=== PATIENT | male | born 1960 ===

== ENCOUNTER 2024-12-08 09:58 | Emergency (ER) | payer MEDICARE, SELFPAY ==
--- NOTE | ~2024-12-08 | CT_ITS ---
EXAMINATION: CT CHEST ANGIOGRAPHY WITH IV CONTRAST INDICATION: elevated dimer, tachy r/o PE v PNA COMPARISON: Previous chest x-ray from earlier the same day TECHNIQUE: Helical CT scan of the chest was performed following administration of intravenous contrast (65 mL Omnipaque 350). The contrast bolus was timed to optimally opacify the pulmonary arteries. Thin sections were obtained through the pulmonary arteries. Coronal and sagittal reformatted images were generated. 3D/MIP reconstructed images are also obtained and reviewed. This CT exam was performed with one or more of the following dose reduction techniques: automated exposure control, adjustment of the mA and/or kV according to patient size, use of iterative reconstruction technique. DLP: 204 mGy-cm CHEST: THYROID: The thyroid gland is unremarkable. PULMONARY ARTERIES: There is good opacification of the pulmonary arteries. Exam is slightly limited due to artifact from respiratory motion. No evidence of large or central pulmonary embolism. There is question of small subsegmental right lower lobe pulmonary artery emboli for example axial image 76-77 and 88-98 series 7. Pulmonary arteries are normal in caliber, main pulmonary artery measuring 2.7 cm. No evidence of right heart strain. No reflux of contrast into the liver. LUNGS: Limited evaluation of the lungs due to artifact from respiratory motion. Elevated right hemidiaphragm. 10 mm partially calcified right upper lobe nodule axial image 44 series 7. This has areas of low attenuation are questionable for fat. 3 mm calcified right lower lobe nodule axial image 66 series 7. 2 mm calcified left lower lobe nodule axial image 56 series 7. Irregular shaped nodular density measuring up to 7 mm or scarring in the left lung apex axial image 58 series 13. Subsegmental atelectasis in the left upper lobe and bilateral lower lobes. No evidence of pneumonia. Central airways are clear. MEDIASTINUM: There are small mediastinal lymph nodes. No enlarged lymph nodes. VANESSA: There are small bilateral calcified and noncalcified hilar lymph nodes. No enlarged lymph nodes. CARDIOVASCULATURE: Enlarged heart. There is no pericardial effusion. The thoracic aorta is normal in caliber. Mild aortic calcification. Normal-appearing esophagus. DEGREE OF CORONARY CALCIFICATION: mild PLEURA: There is no pleural effusion. No pneumothorax. MAIN AIRWAYS: The mainstem bronchi and proximal branches are patent. AXILLA: There is no axillary lymphadenopathy. UPPER ABDOMEN: 1.7 x 2.7 cm low-attenuation lesion in the dome of the liver segment 8 axial image 38 series 5. This has Hounsfield units higher than that of a simple cyst. BONES AND SOFT TISSUES: 7 mm sclerotic density in the T7 vertebral body. Mild degenerative changes of the spine. CT/CT angio chest PE protocol IMPRESSION: Limited exam due to respiratory motion artifact. No evidence of large or central pulmonary embolism. Question small subsegmental right lower lobe pulmonary emboli. 10 mm partially calcified right upper lobe nodule. This has low attenuation areas just above fat and may represent a hamartoma. Other smaller 2 to 3 mm calcified pulmonary nodules. Differential would include old granulomatous disease, carcinoid and other lung neoplasm. Comparison with old outside exams if available recommended. Otherwise PET CT, tissue sampling or short-term chest CT follow-up would be considered. 7 mm nodule versus scarring the left lung apex. No evidence of pneumonia. Indeterminant 1.7 x 2.7 cm liver lesion not compatible with a simple cyst. Recommend further characterization with ultrasound, CT or MRI. Electronically signed by: Suzan Capone MD 12/08/2024 03:00 PM EDT
--- NOTE | ~2024-12-08 | XR_ITS ---
EXAMINATION: XR CHEST CLINICAL INFORMATION: Pneumonia. Cold like symptoms COMPARISON: None available. TECHNIQUE: PA and lateral views. FINDINGS: 5 mm nodular opacity right hemithorax. No pleural effusion or pneumothorax. No hyperinflation. Cardiomediastinal silhouette size is normal with a round apex. Tortuosity of the thoracic aorta. Mild multilevel spondylosis. XR/XR chest 2V IMPRESSION: 5 mm nodular opacity, right lung. Recommend dedicated CT chest. Electronically signed by: Jeffrey Diego MD 12/08/2024 10:53 AM EDT
[2024-12-08 10:04] VITALS: BP 144/80; PULSE 102; O2SAT 97
[2024-12-08 10:14] VITALS: BP 139/85; PULSE 123; RESP 16; TEMP 36.9; O2SAT 95; BMI 22.5
--- NOTE | 2024-12-08 10:17 | ECG_ITS ---
Test Reason : TACHYCARDIA Blood Pressure : */* mmHG Vent. Rate : 116 BPM Atrial Rate : 116 BPM P-R Int : 158 ms QRS Dur : 76 ms QT Int : 310 ms P-R-T Axes : 55 32 51 degrees QTcB Int : 430 ms Sinus tachycardia cannot exclude old Anterior infarct , age undetermined Could be related to body habitus Abnormal ECG No previous ECGs available Referred By: Stevenson Melgar Electronically Signed By: KENDY SHEPHERD
--- NOTE | 2024-12-08 10:21 | ED.GENADULT ---
HPI - General Adult General Chief complaint: Upper Respiratory Symptoms Stated complaint: COLD PER EMS Time Seen by Provider: 12/08/24 10:49 Source: patient, EMS and healthcare interpreter (finnish - jonathan) Mode of arrival: EMS Limitations: language barrier (finnish) History of Present Illness ED Provider: VANI SHERIDAN PA-C HPI narrative: 64 year old male presents to the ED today for evaluation of chills and myalgias x2-3 days. Reports taking Tylenol this morning with temporary improvement in symptoms. Denies documented fevers, N/V/D, abdominal pain, urinary sx, cough, rashes. No known sick contacts. No history of VTE. Denies recent travel or long car rides. Not on anticoagulation. No known tick or insect bites. Endorses remote history of tobacco use. Denies etoh consumption. Patient reports moving to the [facility] from [facility] in the . He is unsure if he received all of his vaccinations. He is unsure if he has ever tested positive for TB in the past. Related Data Previous Rx's ?Medication ?Instructions ?Recorded apixaban 5 mg (74 tabs) tablets in 5 mg PO BID #74 ea 12/08/24 a dose pack (Eliquis DVT-PE Treat 30D Start) Allergies Allergy/AdvReac Type Severity Reaction Status Date / Time No Known Allergies Allergy Verified 12/08/24 10:15 Review of Systems Review of Systems: Yes all other systems are reviewed and are negative PMFSH Past Medical History Attestation statement: The following information was validated with the patient. Source: old records reviewed and nursing notes reviewed Social History Social History Alcohol intake: current Alcohol type: beer Smoked in Last 30 Days: No Use of substances other than those prescribed or required for medical reasons: No Advance Directives: No Advance Directives Information Provided: No Physical Exam ED Vital Signs: Vital Signs - 24 hr 12/08/24 10:14 12/08/24 11:52 12/08/24 12:38 Temperature 98.5 F Pulse Rate 123 H 100 Respiratory Rate 16 17 Blood Pressure 139/85 140/86 H Pulse Oximetry 95 94 94 Oxygen Delivery Method Room Air Room Air Room Air 12/08/24 14:24 12/08/24 16:56 Temperature 98.2 F Pulse Rate 94 94 Respiratory Rate 16 16 Blood Pressure 136/82 136/82 Pulse Oximetry 95 95 Oxygen Delivery Method Room Air Room Air BMI result Body Mass Index 22.5 tachycardic, afebrile, not hypoxic General: well appearing, in no acute distress. Skin: Warm, dry, intact. No rashes or lesions. Head: Normocephalic, atraumatic. EENT: Hearing is intact b/l. Conjunctiva clear. Sclera is anicteric. PERRLA. EOM intact. Moist mucous membranes. Posterior oropharynx without erythema or edema, no peritonsillar masses, no tonsillar exudates, uvula midline, controlling secretions, speaking in complete sentences Cardiac: Chest wall symmetric. RRR Lungs: Normal respiratory effort without accessory muscle use. CTA bilaterally. No rales, rhonchi, or wheezes.?No crackles. Abdomen: Soft, non-tender, non-distended. No rebound tenderness or guarding. Positive BS x4. Back: No midline spinous or paraspinal tenderness. No step off deformity. Ext: +no overlying skin changes or joint swelling. FROM intact throughout. no calf tenderness b/l. no pitting edema. Neuro: AOx3. Normal speech.Ambulating with steady gait. Course Course Course Narrative: RME: 64 yold male presents to the ED for cold like symptoms decsrbes as chills and bodyaches. patient denies any coughing. Patient tachycardic without geovanna chest pain, but will do EKG and labs and chest xray. Reevaluation(s) Reevaluation #1: 1150 -- CBC without leukocytosis however there is neutrophil predominance. No anemia, H & H stable. Chemistry without acute electrolyte abnormality requiring intervention. No VASQUEZ. Random glucose 223, no anion gap. Total bili elevated to 1.3, no priors to compare to, of unknown significance as patient denies any abdominal pain. NT pro BNP ordered by triage, elevated to 2266.7 however clinically there is no suspicion for heart failure. trop wnl at 3.4. Given timing of symptom onset and presentation to ED, no need to repeat for delta. negative covid/flu. ddimer elevated to 372 - age adjusted cut off 330. will obtain CTA chest to r/o PE v PNA > medicated w/ toradol and IVF CTA chest showing: CT angio chest PE protocol IMPRESSION: Limited exam due to respiratory motion artifact. No evidence of large or central pulmonary embolism. Question small subsegmental right lower lobe pulmonary emboli. 10 mm partially calcified right upper lobe nodule. This has low attenuation areas just above fat and may represent a hamartoma. Other smaller 2 to 3 mm calcified pulmonary nodules. Differential would include old granulomatous disease, carcinoid and other lung neoplasm. Comparison with old outside exams if available recommended. Otherwise PET CT, tissue sampling or short-term chest CT follow-up would be considered. 7 mm nodule versus scarring the left lung apex. No evidence of pneumonia. Indeterminant 1.7 x 2.7 cm liver lesion not compatible with a simple cyst. Recommend further characterization with ultrasound, CT or MRI. I discussed findings with my attending, dr. bryson. We performed bedside echo - see procedure note. There is no evidence of right heart strain. Patient's coags and platelets are wnl. Plan to start patient on eliquis. Given multiple lung nodules and liver lesion, there is concern for underlying cancer which may be the cause of his PE. The differential also includes old granulomatosis disease -unclear if patient has been infected with TB in the past as he appears to not recall if he has ever been tested or received treatment for it. there is no visible scar to either deltoid region to indicate prior vaccine. I did add on TB testing however this is still pending. I used healthcare interpreter services to discuss work up results with patient in depth. I stressed the importance of follow up as cancer CANNOT be rule in/out and have provided him with referrals. He states he will be contacting his PCP tomorrow morning for follow up. At this time, the recommendation is discharge home w/ outpatient follow up. patient is agreeable and anxious for discharge home. he has family on the way to transport him. Medications Administered Discontinued Medications Generic Name Dose Route Start Last Admin Trade Name Freq PRN Reason Stop Dose Admin Sodium Chloride 1,000 mls @ 999 mls/hr 12/08/24 11:15 12/08/24 13:15 Ns IV 12/08/24 12:15 Infused .Q1H1M DA Infusion Iohexol 100 ml 12/08/24 13:41 12/08/24 13:42 Iohexol 350 Mg/Ml 100 Ml Infus..Btl IV 12/08/24 13:42 65 ml ONCE ONE Administration Ketorolac Tromethamine 15 mg 12/08/24 11:05 12/08/24 11:55 Ketorolac Tromethamine 15 Mg/Ml Vial IVPUSH 12/08/24 11:06 15 mg ONCE ONE Administration Procedures Procedure Narrative Procedure Narrative: EMERGENCY ULTRASOUND INTERPRETATION-Limited Echocardiography [This study was ordered, performed, and interpreted by myself. The study reveals: Impression: Mildly reduced LV FUNCTION, NO RV DYSFUNCTION, NO PERICARDIAL EFFUSION] [Emergent Cardiac for Indication: Views Used: PLAX, PSSA, A4, SX, IVC Pericardial Effusion/Tamponade Findings: NONE RV Dilation (> LV diam in 4ch apical): NONE Global LV Fxn: Mildly reduce IVC Dilation and Resp Variation: NORMAL Performed by: MD Katherine Images were stored CPT:[id number]] Medical Decision Making Medical Decision Making MDM Narrative: 64 year old male presents to the ED today for evaluation of chills and myalgias x2-3 days. patient is tachycardic to 123, afebrile, no hypoxia. Differential diagnosis includes anemia, electrolyte abnormality, dehydration, urinary tract infection, viral syndrome, bronchitis, pneumonia, PE Labs, viral swabs, ekg, cxr obtained from triage. Will add on ddimer - PERC 2. Medicated w/ Toradol and IVF. Differential Diagnosis Differential Diagnoses: The differential diagnosis associated with the presentation includes as above. Admission/Observation not indicated Lab Data [facility] Lab Attestation statement: I reviewed the patient's lab results. as above. 12/08/24 10:37 12/08/24 10:37 Labs: Lab Results 12/08/24 Range/Units 10:37 WBC 5.8 (4.8-10.8) X10*3/uL RBC 4.53 L (4.60-5.80) X10*6/uL Hgb 14.5 (14.0-18.0) g/dl Hct 42.9 (42.0-52.0) % MCV 94.7 (80.0-98.0) fL MCH 32.0 (27.0-33.0) pg MCHC 33.8 (31.0-36.0) g/dl RDW 11.5 (11.0-16.0) % Plt Count 191 (160-400) X10*3/uL MPV 10.7 (9.4-12.4) fL Immature Gran % (Auto) 0.2 (0.0-0.4) % Neut % (Auto) 89.4 H (45-73) % Lymph % (Auto) 6.6 L (20-40) % Imperial % (Auto) 2.6 (2-11) % Eos % (Auto) 0.7 (0-4) % Baso % (Auto) 0.5 (0-2) % Lymph # (Auto) 0.4 L (1.2-4.9) X10*3/uL Imperial # (Auto) 0.2 (0.1-1.2) X10*3/uL Eos # (Auto) 0.0 (0.0-0.4) X10*3/uL Baso # (Auto) 0.0 (0.0-0.2) X10*3/uL Abs Immat Gran (auto) 0.01 (0.00-0.03) X10*3/uL Absolute Neuts (auto) 5.2 (2.0-8.3) x10*3/uL Absolute Nucleated RBC 0.000 (0.0-0.012) X10*3/uL Nucleated RBC % (auto) 0.0 (0.0-0.2) /100WBC PT 11.0 (10.9-12.4) SEC INR 1.0 (0.9-1.1) APTT 24.7 L (26.7-34.1) SEC D-Dimer High Sensitivty 372 NG/ML Sodium 138 (135-145) mmol/L Potassium 3.8 (3.3-5.1) mmol/L Chloride 105 (96-108) mmol/L Carbon Dioxide 23 (22-29) mmol/L Anion Gap 14 (12-20) BUN 13 (9-16) mg/dL Creatinine 0.86 (0.5-1.4) mg/dL Estim Creat Clear Calc 73.1 Estimated GFR > 60 Random Glucose 225 H (60-115) mg/dL Calcium 9.5 (8.4-10.2) mg/dL Total Bilirubin 1.3 H (0.0-1.0) mg/dL AST 36 (5-37) U/L ALT 37 (0-40) U/L Alkaline Phosphatase 72 (39-117) U/L Troponin I High Sens 3.4 (<3.5-35.0) ng/L NT-Pro-B Natriuret Pep 2266.7 H (<300) pg/mL Total Protein 7.9 (6.5-8.0) g/dL Albumin 4.3 (3.5-5.0) g/dL COVID-19 (GUERA) Negative (Negative) COVID-19 Clin Com See Note Influenza Type A (CECILIO) Negative (Negative) Influenza Type B (CECILIO) Negative (Negative) Influenza A & B Note See Note Independent Interpretation I performed an independent interpretation of an: EKG, Plain X-Ray and CT Scan Interpretation: cxr showing opacity to right lung ekg showing sinus tachycardia, rate of 116 beats per minute, QT 310, QTC 430, no acute ischemic changes or ST elevations cta chest Radiology Impression Discussion of test interpretation with radiology: I have reviewed the radiologist's reading. Radiologist Impression: Procedure(s): XR chest 2V Accession Number(s): [id number] cc: Stevenson Melgar; [facility]~ Reason for Exam: Pneumonia. Cold like symptoms EXAMINATION: XR CHEST CLINICAL INFORMATION: Pneumonia. Cold like symptoms COMPARISON: None available. TECHNIQUE: PA and lateral views. FINDINGS: 5 mm nodular opacity right hemithorax. No pleural effusion or pneumothorax. No hyperinflation. Cardiomediastinal silhouette size is normal with a round apex. Tortuosity of the thoracic aorta. Mild multilevel spondylosis. XR/XR chest 2V IMPRESSION: 5 mm nodular opacity, right lung. Recommend dedicated CT chest. Electronically signed by: Jeffrey Diego MD 12/08/2024 10:53 AM EDT Independent Historian Clinical information obtained from an independent historian. History obtained from or confirmed by: EMS Prescription Management I considered prescription management with: Pain Medication and Antibiotic Chronic Conditions Patient?s care impacted by: Diabetes Social Determinants Patient?s care significantly limited by Social Determinants of Health including: Other Social Determinant of Health Critical Care Time Critical Care Time Critical Care Time: No Discharge Plan Discharge Clinical Impression: Viral syndrome, Pulmonary emboli Patient Disposition: Home, Self-Care Instructions: Pulmonary Embolism (ED), Viral Syndrome (ED), Blood Thinners (ED) Additional Instructions: You were evaluated in the ED today for muscle pain and chills. Your blood work today is reassuring. Your chest xray showed a nodule to your right upper lung, thus a CT scan of your chest was ordered. The CT scan shows a small clot (pulmonary embolus) to your right lower lung. You need to be placed on a blood thinner to prevent further clots. I am starting you on eliquis. I have sent a starter pack to your pharmacy to take as prescribed over the next month. YOU NEED TO FOLLOW UP WITH YOUR PCP for refills as you will need to be on this medication for at least 3 months. Avoid NSAID use, alcohol consumption while on Eliquis. If you fall and strike your head, you need to come to the ED for evaluation to rule out head bleed. You may take Tylenol at home for pain/discomfort. The CT scan of your chest also shows calcified nodules to your right lung as well as a lesion to the upper portion of your liver. These findings are concerning for a potential cancer. You NEED to follow up out patient for further testing/ scans to determine if you may have cancer. I have provided you with a referral to a repeat photocomposing machine operator (lung doctor). Please call them to establish care, they will not call you. Please return with any new or worsening symptoms. In the case of an emergency call 911. Prescriptions: New Eliquis DVT-PE Treat 30D Start 5 mg (74 tabs) tablets,dose pack 5 mg PO BID Qty: 74 0RF Referrals: [facility] [Other] [facility] [place] [place] Pulmon[facility] Services [Provider Group, Pulmonology] Referral Note: CT angio chest PE protocol IMPRESSION: Limited exam due to respiratory motion artifact. No evidence of large or central pulmonary embolism. Question small subsegmental right lower lobe pulmonary emboli. 10 mm partially calcified right upper lobe nodule. This has low attenuation areas just above fat and may represent a hamartoma. Other smaller 2 to 3 mm calcified pulmonary nodules. Differential would include old granulomatous disease, carcinoid and other lung neoplasm. Comparison with old outside exams if available recommended. Otherwise PET CT, tissue sampling or short-term chest CT follow-up would be considered. 7 mm nodule versus scarring the left lung apex. No evidence of pneumonia. Indeterminant 1.7 x 2.7 cm liver lesion not compatible with a simple cyst. Recommend further characterization with ultrasound, CT or MRI. Interventions: ED Discharge Assessment Last Done: 12/08/24 16:56 Discharge Date/Time: 12/08/24 17:22 Print Language: Venezuelan
[2024-12-08 10:45] LABS: MANUAL DIFF FLAG NO
[2024-12-08 10:49] LABS: Hematocrit 42.9 % (42.0-52.0); Hemoglobin 14.5 g/dl (14.0-18.0); Imm Gran Abs Auto 0.01 X10*3/uL (0.00-0.03); Imm Gran Pct Auto 0.2 % (0.0-0.4); Lymphocytes Absolute Auto 0.4 X10*3/uL (1.2-4.9); Mean Corpuscular HGB Conc 33.8 g/dl (31.0-36.0); Mean Corpuscular Hemoglobin 32.0 pg (27.0-33.0); Mean Corpuscular Volume 94.7 fL (80.0-98.0); NRBC Abs Auto 0.000 X10*3/uL (0.0-0.012); NRBC Pct Auto 0.0 /100WBC (0.0-0.2); Platelet Count 191 X10*3/uL (160-400); Red Blood Count 4.53 X10*6/uL (4.60-5.80); White Blood Count 5.8 X10*3/uL (4.8-10.8)
[2024-12-08 10:53] LABS: INTERNATIONAL NORM RATIO 1.0 (0.9-1.1); Prothrombin Time 11.0 SEC (10.9-12.4)
[2024-12-08 10:56] LABS: Partial Thromboplastin Time 24.7 SEC (26.7-34.1)
[2024-12-08 11:05] LABS: Alanine Aminotransferase 37 U/L (0-40); Albumin Level 4.3 g/dL (3.5-5.0); Alkaline Phosphatase 72 U/L (39-117); Anion Gap 14 (12-20); Aspartate Amino Transferase 36 U/L (5-37); Blood Urea Nitrogen 13 mg/dL (9-16); Calcium 9.5 mg/dL (8.4-10.2); Carbon Dioxide 23 mmol/L (22-29); Chloride 105 mmol/L (96-108); Creatinine Clr Calc Pharmacy 73.1; Estimated Glomerular Filt Rate > 60; Potassium 3.8 mmol/L (3.3-5.1); Sodium 138 mmol/L (135-145); Total Protein 7.9 g/dL (6.5-8.0)
[2024-12-08 11:14] LABS: NT Pro B Type Natriuretic Pept 2266.7 pg/mL (<300); Troponin-I High Sensitivity 3.4 ng/L (<3.5-35.0)
[2024-12-08 11:33] LABS: COVID-19 Test Negative (Negative); IDNOW Serial# 55D5AD1C; IDNOW Serial# 58CA691E; Influenza B2 Negative (Negative)
[2024-12-08 11:48] LABS: D Dimer High Sensitivity 372 NG/ML
[2024-12-08 11:52] VITALS: O2SAT 94
[2024-12-08 12:38] VITALS: BP 140/86; PULSE 100; RESP 17; O2SAT 94
[2024-12-08] MEDS: iohexoL 350 MG/ML 100 ML INFUS..BTL IV (13:42)
[2024-12-08 14:24] VITALS: BP 136/82; PULSE 94; RESP 16; O2SAT 95
--- NOTE | 2024-12-08 16:30 | MHC.EDTECH ---
Labs work drawn/sent
[2024-12-08 16:56] VITALS: BP 136/82; PULSE 94; RESP 16; TEMP 36.8; O2SAT 95
[2024-12-11 20:19] LABS: Quantiferon TB Gold Plus 1 NEGATIVE (NEGATIVE); TB Test (QFT) Mitogen -Nil 1.19 IU/mL; TB Test (QFT) Nil 3.03 IU/mL; TB Test (QFT) Plus TB1 -Nil <0.00 IU/mL; TB Test (QFT) Plus TB2 -Nil <0.00 IU/mL
== END 2024-12-08 17:22 | disposition home or self-care (01) ==
PROVIDERS: Physician Assistant; Physician Assistant Medical; Emergency Provider Emergency Medicine
DX: B34.9 Viral infection, unspecified (principal); I26.99 Other pulmonary embolism without acute cor pulmonale; Z79.899 Other long term (current) drug therapy; M79.10 Myalgia, unspecified site
CPT/HCPCS: 36415; 71046; 71275; 80053; 83880; 84484; 85025; 85379; 85610; 85730; 86480; 87502; 87635; 93005; 93308; 96361; 96374; 99285; J1885; Q9967

== ENCOUNTER → 2024-12-08 10:17 | Outpatient (BNV) | payer MEDICARE, SELFPAY | PROVIDERS: Emergency Provider Emergency Medicine; Visit Provider Internal Medicine | DX: R00.0 Tachycardia, unspecified (principal) | CPT/HCPCS: 93010 ==

== ENCOUNTER → 2024-12-08 10:17 | Outpatient (BNV) | payer MEDICARE, SELFPAY | PROVIDERS: Emergency Provider Emergency Medicine; Visit Provider Radiology Diagnostic Radiology | DX: R00.0 Tachycardia, unspecified (principal); R79.1 Abnormal coagulation profile; J18.9 Pneumonia, unspecified organism | CPT/HCPCS: 71046 ==

== ENCOUNTER 2024-12-17 09:51 | Emergency (ER) | payer MEDICARE, SELFPAY ==
[2024-12-17] VITALS (16 sets, daily range): BP systolic 111–147; BP diastolic 46–80; PULSE 82–150; RESP 16–33; TEMP 36.4–39.9; O2SAT 90–100; BMI 22.4
--- NOTE | ~2024-12-17 | CT_ITS ---
CLINICAL HISTORY: SOB hx of PE ? septic emboli pulmonary infarct CT angiography of the chest with IV contrast. 3D/MIP post processing reconstructions were performed. COMPARISON: CT angiogram chest dated 12/08/24 at 13:24 EDT FINDINGS: There are no intraluminal filling defects to suggest pulmonary embolism. No evidence of right heart strain. No supraclavicular or axillary lymphadenopathy. Ascending aorta and main pulmonary artery are normal in caliber. Coronary artery calcifications present within the LAD and circumflex. No pericardial effusion. Normal esophagus. No mediastinal lymphadenopathy. No pleural effusion. Smooth interlobular septal thickening along the posterior lower lobes bilaterally. Subpleural consolidation within the right upper lobe laterally, new from prior imaging Trachea and central airways are clear. No significant bronchial wall thickening. No bronchiectasis. Interval development of multiple bilateral pulmonary nodules. For example left upper lobe pulmonary nodule measuring 1.3 x 1.3 cm (series 21, image 51), new from prior imaging. Left upper lobe 6 mm pulmonary nodule (series 21, image 70), new from prior imaging. Left lower lobe 7 mm pulmonary nodule (series 21, image 98), new from prior imaging. Right upper lobe medial 1.0 x 0.9 cm pulmonary nodule (series 21, image 61), new from prior imaging. Partially calcified right upper lobe pulmonary nodule measuring 1.0 cm (series 21, image 43), stable. Ill-defined hepatic lesion with small amount of internal gas measuring 6.9 x 4.8 x 0.1 cm (series 21, image 92), previously measured 2.9 x 2.2 cm. Sclerotic lesion within the T7 vertebral body consistent with a bone island. IMPRESSION: 1. No evidence of pulmonary embolism. 2. Interval development of subpleural consolidation along the lateral right upper lung and multiple bilateral pulmonary nodules measuring up to 1.3 cm in the left upper lobe. Findings most likely represent a multifocal infectious or inflammatory process with metastatic disease considered less likely given, with the exception of one partially calcified nodule, the nodules are new since imaging dated 12/08/2024. No evidence of cavitation. 3. Interval increase in size of ill-defined lesion within the right lobe of the liver measuring up to 6.9 cm with now small amount of internal gas. Findings raise suspicion for hepatic abscess. 4. Interstitial pulmonary edema. 5. Coronary artery atherosclerosis. This document has been electronically signed by: Marko Granger MD on 12/17/2024 15:00:58
--- NOTE | ~2024-12-17 | XR_ITS ---
CLINICAL HISTORY: sob 1 view chest Comparison: CR/SR - XR CHEST 2 VIEWS - 12/08/24 10:54 EDT Findings: Cardiac and mediastinal contours are normal. Mild interstitial prominence with scattered peribronchial thickening. No focal consolidation. No effusion. No pneumothorax. No acute osseous finding. Impression: Mild interstitial prominence with scattered peribronchial thickening. No focal consolidation. This document has been electronically signed by: Josse Holt MD on 12/17/2024 11:10:15
--- NOTE | ~2024-12-17 | CT_ITS ---
CLINICAL HISTORY: AMS fever abd pain Exam: Contrast-enhanced CT abdomen and pelvis with multiplanar reformats. Comparison: None. Findings: CT abdomen: Lungs reveal left base nodules measuring up to 8 mm (measured on 28; 14). There is right worse than left lower lobe dependent atelectasis. Liver reveals a multiloculated somewhat heterogeneous right lobe collection measuring up to 7.3 x 5.6 cm AP and transverse dimension (28; 91, predominantly fluid attenuation at 10 Hounsfield units, with a small focus of gas density anteriorly) by 5.8 cm craniocaudad dimension (30; 38), most likely hepatic abscess. No other focal lesions or ductal dilatation. Gallbladder appears unremarkable. Spleen appears unremarkable. Pancreas and adrenal glands appear unremarkable. Kidneys reveal a very slightly heterogeneous nephrogram on the right, raising the possibility of mild pyelonephritis. Kidneys otherwise unremarkable. No free intraperitoneal fluid or retroperitoneal masses or adenopathy. Abdominal aorta is normal caliber with mild calcific athero sclerosis. Bowel loops reveal no abnormal wall thickening or distention. The appendix appears unremarkable. No CT evidence of diverticulitis. CT pelvis: Prostatomegaly is present, with prostate gland measuring 5.6 cm transverse dimension. Urinary bladder is free of gross filling defects. No pelvic masses, fluid or adenopathy. Osseous structures reveal no destructive osseous lesions. Impression: 1. Multiloculated fluid attenuation hepatic lesion containing small focus of gas, most likely hepatic abscess, measuring up to 7.3 cm maximal dimension. 2. Slightly heterogeneous right nephrogram raises the possibility of mild pyelonephritis, consider correlation with urinalysis. Pulmonary nodules measuring up to 8 mm. 3. Pulmonary nodules measuring up to 8 mm. Prostatomegaly as described above. This document has been electronically signed by: Scott Richard MD on 12/17/2024 14:18:35
--- NOTE | ~2024-12-17 | CT_ITS ---
CLINICAL HISTORY: AMS CT head without contrast Comparison: None Findings: No intracranial mass, midline shift, hydrocephalus, or acute hemorrhage. No CT evidence of acute ischemia. Visualized paranasal sinuses and mastoid air cells normal. Orbits unremarkable. No skull fracture Impression: 1. No acute intracranial abnormalities. This document has been electronically signed by: Scott Richard MD on 12/17/2024 14:13:34
--- NOTE | 2024-12-17 10:16 | ECG_ITS ---
Test Reason : SOB Blood Pressure : */* mmHG Vent. Rate : 124 BPM Atrial Rate : 124 BPM P-R Int : 166 ms QRS Dur : 74 ms QT Int : 304 ms P-R-T Axes : 24 24 59 degrees QTcB Int : 436 ms Sinus tachycardia Cannot rule out Inferior infarct , age undetermined Cannot rule out Anterior infarct (cited on or before 08-Dec-2024) Abnormal ECG When compared with ECG of 08-Dec-2024 10:30, T wave inversion no longer evident in Anterior leads Referred By: Breanna Brambila Electronically Signed By: Fady Bernardo
--- NOTE | 2024-12-17 10:24 | ED_ITS ---
HPI - General Adult General Chief complaint: Dyspnea Stated complaint: SOB WEAKNESS Time Seen by Provider: 12/17/24 10:15 Source: patient and EMS Mode of arrival: EMS Limitations: altered mental status History of Present Illness ED Provider: FLAKITO Brambila HPI narrative: 64-year-old male hx of remote substance abuse, recently dx w/ PE ( 12/08) presents via ambulance from home for a feeling unwell. Patient reports worsening shortness of breath over the past few weeks worsening. He has a very poor historian and tells me I do not feel good . He denies associated chest pain or sick contacts. He tells me he was recently in the hospital but has a hard time telling me why he was here. He does endorse history of drug use he tells me he used to use crack cocaine but denies currently using. When I asked him about IV drug use he mentioned years ago however I am not sure that patient understood my question. He does tell me he drinks alcohol. He seems slightly confused upon my history taking and is a very poor historian. EMS noted that patient was 91% on room air and was tachycardic to 125 with a respiratory rate of 32. Exam: General: At the time my examination and the patient is feeling significantly better, he was awake, alert in no distress Head: Normocephalic, atraumatic EENT: PERRL, sclera and conjunctiva are normal, mouth with no erythema or exudates Neck: Supple, no adenopathy Lung: breath sounds symmetric, no wheezing, no rales and no rhonchi Chest: symmetric movement, nontender Heart: regular rate and rhythm, normal S1, S2 no murmurs or rubs Abdomen: soft, non-tender, nondistended, normal bowel sounds Back: no vertebral tenderness, no CVAT Extremities: no deformities, moves all extremities symmetrically, no edema Neuro: Awake, alert, oriented, normal speech, cranial nerves 2-12 intact, moves all extremities symmetrically Psych: Pleasant, cooperative Medical decision making: My interpretation in his laboratory evaluation is as follows: WBC normal 10,700. Normocytic anemia with an H&H of 13.1 and 38.7. PT INR elevated 14.5 and 1.2. ABG revealed a respiratory alkalosis with a pH of 7.43, low pCO2 of 25 low O2 sat of 82 with a low bicarb of 17. Glucose was elevated 365. Serum bicarb low 13 with an elevated anion gap of 26. BNP elevated 2683. Troponin was normal. Beta hydroxybutyrate elevated 1.76. Urinalysis was positive for protein, glucose, blood, nitrates and leukocyte esterase. Microscopic revealed 0-2 RBCs, 21-50 WBCs 2+ bacteria-this could represent a urinary tract infection. Urine toxicology was negative. Viral respiratory panel was negative. Chest x-ray revealed no local consolidations but peribronchial thickening. CT of the head revealed no acute intracranial abnormalities. CT of the abdomen pelvis revealed multi lobular fluid attenuation hepatic lesions containing small foci of gas most likely hepatic abscesses measuring up to 7.3 cm max dimension. Slightly heterogeneous right nephrogram concerning for possible mild pyelonephritis and pulmonary nodules measuring up to 8 mm. Related Data Previous Rx's ?Medication ?Instructions ?Recorded apixaban 5 mg (74 tabs) tablets in 5 mg PO BID #74 ea 12/08/24 a dose pack ([employer] DVT-PE Treat 30D Start) Allergies Allergy/AdvReac Type Severity Reaction Status Date / Time No Known Allergies Allergy Verified 12/17/24 10:09 Review of Systems 2 Review of Systems: Yes all other systems are reviewed and are negative PMFSH Past Medical History Attestation statement: The following information was validated with the patient. Source: old records reviewed and nursing notes reviewed Social History Social History Alcohol intake: current Alcohol type: beer Smoked in Last 30 Days: No Use of substances other than those prescribed or required for medical reasons: Yes Substance Use Type: Crack/Cocaine Advance Directives: No Advance Directives Information Provided: No Do you have a plan to hurt others: No Plan Physical Exam ED Exam Exam: Appearance: Alert.? Oriented X2 person, place not time or situation.? Appears to be in acute cardiopulmonary distress.? Patient is sick appearing cachectic. Head: Normocephalic, atraumatic, no step-offs or deformities Eyes: Pupils equal, round and reactive to light.? Neck: Normal inspection.? Neck supple.? CVS: Normal heart rate and rhythm.? Pulses normal.? Respiratory: + respiratory distress.? Breath sounds diminished bilaterally.? Abdomen: Soft and nontender.? Skin: Skin warm and dry.? Normal skin color.? Normal skin turgor.? Extremities: No lower extremity edema.? No calf ttp. Global weakness Neuro: Oriented X person and place.? No motor deficit.? No sensory deficit. Vital Signs: Vital Signs - 24 hr 12/17/24 10:07 12/17/24 11:01 12/17/24 11:17 Temperature 103.8 F H 103.2 F H Pulse Rate 126 H 112 H 112 H Respiratory Rate 32 H 21 H 21 H Blood Pressure 129/75 115/46 L Pulse Oximetry 90 L 95 Oxygen Delivery Method Room Air Nasal Cannula Oxygen Flow Rate 2 12/17/24 11:19 12/17/24 11:29 12/17/24 11:33 Temperature 103.2 F H 100.9 F H Pulse Rate 116 H 114 H Respiratory Rate 29 H 33 H Blood Pressure 111/54 L 129/72 Pulse Oximetry 97 97 Oxygen Delivery Method Nasal Cannula Nasal Cannula Oxygen Flow Rate 2 2 12/17/24 11:38 12/17/24 12:23 12/17/24 12:23 Temperature 99.6 F 99.5 F Pulse Rate 112 H 104 H 104 H Respiratory Rate 30 H 18 20 Blood Pressure 131/70 119/66 127/67 Pulse Oximetry 98 100 100 Oxygen Delivery Method Nasal Cannula Nasal Cannula Nasal Cannula Oxygen Flow Rate 4 2 2 12/17/24 12:26 12/17/24 12:28 12/17/24 15:26 Temperature 99.0 F 99.5 F 98.9 F Pulse Rate 104 H 101 H 89 Respiratory Rate 19 20 Blood Pressure 127/67 119/66 124/77 Pulse Oximetry 100 100 100 Oxygen Delivery Method Nasal Cannula Nasal Cannula Nasal Cannula Oxygen Flow Rate 2 2 2 12/17/24 15:30 12/17/24 16:32 Temperature 98.9 F 99 F Pulse Rate 89 82 Respiratory Rate 20 22 H Blood Pressure 124/77 111/69 Pulse Oximetry 100 100 Oxygen Delivery Method Nasal Cannula Nasal Cannula Oxygen Flow Rate 2 2 BMI result Body Mass Index 22.4 vss Course Reevaluation(s) Reevaluation #1: I spoke to Landon in the pharmacy and it appears as though patient did not fill his Eliquis prescription. Claim history not available. He will reach out to [facility] Time: 10:25 Reevaluation #2: Pharmacy did reach out to me, they reach out to [facility] patient did not fill this prescription it was very expensive 900 dollars therefore they requested insurance information patient never called back in the prescription was never picked up therefore patient has not been med compliant with Eliquis since diagnosed with PE raising suspicion for possible septic emboli Given this information patient will be started on heparin drip at this time due to high suspicion for possible pulmonary infarct/septic emboli Time: 10:33 Reevaluation #3: Patient's CBC with no leukocytosis. Differential still pending. Chemistry with sodium of 132, elevated anion gap likely in the setting of acute sepsis. Lactic acid 8.5. He is being treated with fluids, antibiotics he is meeting severe sepsis criteria. Patient's pro BNP 2683 he does not appear to be in acute fluid overload on exam no lower extremity edema no crackles noted. Troponin is negative there are some ST elevations noted in the anterior leads, I discuss this with cardiology who tells me this is likely secondary to tachycardia as there are Q-waves present. Recommends repeat EKG. Per Cardiology patient likely septic. Recommends anticoagulating with heparin at this time which is already being done. I will obtain an ABG Time: 13:13 Additional Reevaluation(s): Sign out to Dr. Contreras as my shift has come to an end Time: 14:04 Date: 12/17/24 Provider: Randy Contreras MD attending physician note 64-year-old male hx of remote substance abuse, recently dx w/ PE ( 12/08) presents via ambulance from home for worsening shortness of breath. Patient was seen in the emergency department on 12/08/2024 for chills and myalgias for 2-3 days. At the 1st DB visit, CT pulmonary embolism PE protocol revealed No evidence of large or central pulmonary embolism. Question small subsegmental right lower lobe pulmonary emboli ...and Other smaller 2 to 3 mm calcified pulmonary nodules. Differential would include old granulomatous disease, carcinoid and other lung neoplasm . The patient was started on Eliquis and discharged home however he was unable to afford this medication and was not taking any anticoagulants. Patient returned complaining of shortness of breath x2 weeks getting progressively worse, rectal temperature was a 103.8 degrees F, heart rate was 125, respiratory rate was 32 and O2 saturation was 91% on room air. He denied chest pain or cough. Exam: General: Awake, alert in no distress Head: Normocephalic, atraumatic EENT: PERRL, sclera and conjunctiva are normal, mouth with no erythema or exudates Neck: Supple, no adenopathy Lung: breath sounds symmetric, no wheezing, no rales and no rhonchi Chest: symmetric movement, nontender Heart: regular rate and rhythm, normal S1, S2 no murmurs or rubs Abdomen: soft, non-tender, nondistended, normal bowel sounds Back: no vertebral tenderness, no CVAT Extremities: no deformities, moves all extremities symmetrically, no edema Neuro: Awake, alert, oriented, normal speech, cranial nerves 2-12 intact, moves all extremities symmetrically Psych: Pleasant, cooperative Medical decision making My interpretation of the laboratory evaluation is as follows: CBC revealed mild normocytic anemia with an H&H of 13.1 and 38.7. Coags reveal an elevated INR of 1.2. Blood gas revealed a pH of 7.43, pCO2 25, PO2 of 82 and bicarb of 17. Serum bicarb low 13. Anion gap elevated 26. BUN elevated 17 with a normal creatinine of 1.28. Glucose elevated 365. Lactic acid elevated 8.5. Corrected to 1.4 after fluid bolus. AST, ALT and alk-phos were elevated 94, 71, and 219. Pro BNP was elevated 2683.5. Beta hydroxybutyrate elevated 1.76. Urinalysis was positive for protein, glucose, blood, nitrates, leukocyte esterase. Microscopic revealed 0-2 RBCs, 21-50 WBCs, 0 2 squamous cells and 2+ bacteria- concerning for possible urinary tract infection. CT of the head revealed no acute findings, chest x-ray revealed no acute consolidations. CT scan of the abdomen pelvis with IV contrast was concerning for Multiloculated fluid attenuation hepatic lesion containing small focus of gas, most likely hepatic abscess, measuring up to 7.3 cm maximal and Kidneys reveal a very slightly heterogeneous nephrogram on the right, raising the possibility of mild pyelonephritis The patient was treated earlier with the Zosyn 3.375 g IV for possible pneumonia however given this hepatic lesion, I ordered clindamycin. 15:46 CT scan of the chest did not reveal any pulmonary abscess, therefore the heparin drip was stopped. I did discuss the patient's presentation with the interventional radiologist, Dr. Jef Zambrano at [facility]. He was able to review the images and states that he would attempt to drain this abscess. He recommended that the patient be admitted to the [facility] hospitalist service and kept NPO after midnight and he would attempted drain this abscess tomorrow. I did discuss patient's presentation with the covering hospitalist who was well however [facility] is currently at capacity and can not guarantee a bed at this time. I ordered a 2nd dose of Zosyn 4.5 g IV that has the 1st dose was given at 10:16 hours. 17:12 hours I did discuss the patient's presentation with the [facility] transfer line and the patient was accepted as an ED to ED transfer, accepting attending ED physician is Dr. Avila. Patient is currently stable, awake and alert and in his not appear to be in distress. Vital signs: BP 118/69, heart rate 82, respiratory rate 22, temperature 99 degrees F, O2 saturation 100% on 2 L via nasal cannula. Patient has no medications running at this time and will be transferred by BLS ambulance. Patient will be kept NPO. . Medications Administered Generic Name Dose Route Start Last Admin Trade Name Freq PRN Reason Stop Dose Admin Heparin Sodium/Sodium Chloride 25,000 unit in 250 mls @ 0 mls/hr 12/17/24 10:45 12/17/24 15:15 Heparin Sodium,Porcine/1/2ns IVCONT Infused .Q0M DA Titration Protocol Per Protocol Discontinued Medications Generic Name Dose Route Start Last Admin Trade Name Freq PRN Reason Stop Dose Admin Heparin Sodium (Porcine) 4,900 unit 12/17/24 10:38 12/17/24 12:16 Heparin Sodium,Porcine 5,000 Unit/Ml Vial 80 unit/kg (4900 unit) 12/17/24 10:39 4,900 unit IVPUSH Administration ONCE ONE Sodium Chloride 1,830 mls @ 1,830 mls/hr 12/17/24 10:16 12/17/24 12:20 Ns 30 ml/kg infuse over 1 hr (1830 ml) 12/17/24 11:15 Infused IV Infusion .Q1H STA Acetaminophen 1,000 mg in 100 mls @ 400 mls/hr 12/17/24 10:16 12/17/24 10:57 Ofirmev IV 12/17/24 10:30 Infused ONCE ONE Infusion Piperacillin Sod/Tazobactam 50 mls @ 100 mls/hr 12/17/24 10:16 12/17/24 10:57 Sod 3.375 gm/ Sodium Chloride IV 12/17/24 10:45 Infused ONCE ONE Infusion Vancomycin HCl 1,500 mg/ 500 mls @ 333.333 mls/hr 12/17/24 10:30 12/17/24 12:28 Sodium Chloride IV 12/17/24 11:59 Infused ONCE ONE Infusion Clindamycin Phosphate 900 mg in 50 mls @ 50 mls/hr 12/17/24 14:40 12/17/24 16:32 Cleocin IV 12/17/24 15:39 Infused ONCE ONE Infusion Piperacillin Sod/Tazobactam 100 mls @ 200 mls/hr 12/17/24 15:58 12/17/24 16:32 Sod 4.5 gm/ Sodium Chloride IV 12/17/24 16:27 200 mls/hr ONCE ONE Administration Iohexol 100 ml 12/17/24 12:57 12/17/24 12:57 Iohexol 350 Mg/Ml 100 Ml Infus..Btl IV 12/17/24 12:58 85 ml ONCE ONE Administration Levalbuterol HCl 1.25 mg 12/17/24 11:01 12/17/24 11:06 Levalbuterol Hcl 1.25 Mg/3 Ml Vial.Neb INHALE 12/17/24 11:02 1.25 mg ONCE ONE Administration Medical Decision Making Medical Decision Making [facility] Narrative: 1027 64-year-old male poor historian presents with worsening shortness of breath. Upon chart review it appears as though patient was seen here on 12/08/2024 he was diagnosed with pulmonary embolism and discharged home with karrie Hathaway. Upon further questioning patient tells me that he is taking this medication . When I asked him with the name of the medication as he does not know and when I asked him how many times a day he also does not know. Again patient a very poor historian. On exam patient noted to be tachycardic, tachypneic, febrile and unwell appearing. Patient is leaning over, with labored breathing. He appears diaphoretic in his skin feels warm. Regular rhythm fast rate. Breath sounds diminished bilaterally. Neurological assessment patient alert and oriented to person, place not time or situation. Abdomen soft nontender nondistended History and physical exam concerning for sepsis possible encephalopathy with possible septic embolism. I do not suspect meningitis, encephalitis as there is no meningeal signs on exam. Will rule out pneumonia, viral illness, urinary infection. Will also rule out metabolic derangements, anemia. No midline tenderness to back low suspicion for acute diskitis/epidural abscess. Low suspicion for intracranial hemorrhage. 1023 sepsis alert was called in a sepsis focused exam was done at the bedside upon arrival. Differential Diagnosis Differential Diagnoses: The differential diagnosis associated with the presentation includes (History and physical exam concerning for sepsis possible encephalopathy with possible septic embolism. I do not suspect meningitis, encephalitis as there is no meningeal signs on exam. Will rule out pneumonia, viral illness, urinary infection. Will also rule out metabolic derangements, anemia. N) Admission/Observation Consideration of admission/observation: Escalation of care including admission/observation considered Lab Data MDM Lab Attestation statement: I reviewed the patient's lab results. 12/17/24 10:33 12/17/24 10:30 Labs: Lab Results 12/17/24 12/17/24 12/17/24 Range/Units 10:29 10:30 10:33 WBC 10.7 10.7 (4.8-10.8) X10*3/uL RBC 4.19 L 4.16 L (4.60-5.80) X10*6/uL Hgb 13.1 L 13.1 L (14.0-18.0) g/dl Hct 38.9 L 38.7 L (42.0-52.0) % MCV 92.8 93.0 (80.0-98.0) fL MCH 31.3 31.5 (27.0-33.0) pg MCHC 33.7 33.9 (31.0-36.0) g/dl RDW 12.3 12.3 (11.0-16.0) % Plt Count 357 D 365 (160-400) X10*3/uL MPV 11.0 11.3 (9.4-12.4) fL Immature Gran % (Auto) 1.6 H (0.0-0.4) % Neut % (Auto) 90.2 H (45-73) % Lymph % (Auto) 3.9 L (20-40) % [place] % (Auto) 3.5 (2-11) % Eos % (Auto) 0.1 (0-4) % Baso % (Auto) 0.7 (0-2) % Lymph # (Auto) 0.4 L (1.2-4.9) X10*3/uL [place] # (Auto) 0.4 (0.1-1.2) X10*3/uL Eos # (Auto) 0.0 (0.0-0.4) X10*3/uL Baso # (Auto) 0.1 (0.0-0.2) X10*3/uL Abs Immat Gran (auto) 0.17 H (0.00-0.03) X10*3/uL Absolute Neuts (auto) 9.6 H (2.0-8.3) x10*3/uL Absolute Nucleated RBC 0.000 0.000 (0.0-0.012) X10*3/uL Nucleated RBC % (auto) 0.0 0.0 (0.0-0.2) /100WBC Smear Tech's Comments VERIFIED PT 14.5 H Cancelled (11.2-13.5) SEC INR 1.2 H Cancelled (0.9-1.1) APTT 30.6 D (26.7-34.1) SEC aPTT Heparin Protocol Cancelled O2 Saturation % ABG pH at Pt Temp (7.35-7.45) ABG pCO2 at Pt Temp (32-45) mmHg ABG pO2 at Pt Temp (83-108) mmHg ABG HCO3 (22-26) mmol/L ABG Base Excess (Actual) mmol/L VBG pH (7.32-7.43) VBG pCO2 mmHg VBG pO2 mmHg VBG HCO3 (22-26) mmol/L VBG O2 Saturation % VBG Base Excess mmol/L Sodium 132 L (135-145) mmol/L Potassium 4.5 (3.3-5.1) mmol/L Chloride 98 (96-108) mmol/L Carbon Dioxide 13 L (22-29) mmol/L Anion Gap 26 H (12-20) BUN 17 H (9-16) mg/dL Creatinine 1.28 (0.5-1.4) mg/dL Estim Creat Clear Calc 48.9 Estimated GFR 56 Random Glucose 365 H* (60-115) mg/dL Lactic Acid 8.5 H* (0.5-2.0) mmol/L Lactic Acid F/U @ 2Hr (0.5-2.0) mmol/L Calcium 9.2 (8.4-10.2) mg/dL Magnesium 2.5 (1.6-2.6) mg/dL Total Bilirubin 0.8 (0.0-1.0) mg/dL AST 94 H (5-37) U/L ALT 71 H (0-40) U/L Alkaline Phosphatase 219 H (39-117) U/L Troponin I High Sens < 2.7 (<3.5-35.0) ng/L NT-Pro-B Natriuret Pep 2683.5 H (<300) pg/mL Total Protein 7.9 (6.5-8.0) g/dL Albumin 3.6 (3.5-5.0) g/dL Lipase 71 (8-78) U/L Beta-Hydroxybutyrate 1.76 H (0.02-0.27) mmol/L Urine Color Urine Appearance Urine pH (5.0-9.0) Ur Specific [place] (1.005-1.025) Urine Protein (Neg-Trace) mg/dL Urine Glucose (UA) (Negative) mg/dL Urine Ketones (Negative) mg/dL Urine Blood (Negative) Urine Nitrite (Negative) Ur Leukocyte Esterase (Negative) Urine RBC (0-2) /HPF Urine WBC (0-5) /HPF Urine WBC Clumps Ur Squamous Epith Cells (0-2) /HPF Urine Bacteria (None Seen) Hyaline Casts (0-2) /LPF Urine Opiates Screen (Not Detect) Ur Buprenorphine Scrn (Not Detect) ng/mL Ur Oxycodone Screen (Not Detect) ng/mL Urine Methadone Screen (Not Detect) ng/mL Urine Fentanyl Screen (Not Detect) Ur Barbiturates Screen (Not Detect) Ur Phencyclidine Scrn (Not Detect) Ur Amphetamines Screen (Not Detect) U Benzodiazepines Scrn (Not Detect) Urine Cocaine Screen (Not Detect) U Marijuana (THC) Screen (Not Detect) Respiratory Panel [place] Adenovirus (Rapid PCR) (Not Detect.) B.pert (TEM-PCR) (Not Detect.) B.parapertussis DNA PCR (Not Detect.) C. pneumoniae DNA (PCR) (Not Detect.) Coronavirus OC43 (PCR) (Not Detect.) Coronavirus HKU1 (PCR) (Not Detect.) Coronavirus 229E (PCR) (Not Detect.) COVID-19 (GUERA) Negative (Negative) COVID-19 Clin Com See Note Coronavirus NL63 (PCR) (Not Detect.) Human Metapneumovir PCR (Not Detect.) Influenza Type A (CECILIO) Negative (Negative) Influenza A (RT-PCR) (Not Detect.) Influenza A (H1) PCR (Not Detect.) Influ A (H1/09) PCR (Not Detect.) Influenza A (H3) PCR (Not Detect.) Influenza Type B (CECILIO) Negative (Negative) Influenza B (RT-PCR) (Not Detect.) Influenza A & B Note See Note M. pneumoniae (PCR) (Not Detect.) Parainfluenza 1 (PCR) (Not Detect.) Parainfluenza 2 (PCR) (Not Detect.) Parainfluenza 3 (PCR) (Not Detect.) Parainfluenza 4 (PCR) (Not Detect.) RSV (PCR) (Not Detect.) Entero/Rhino (PCR) (Not Detect.) SARS-CoV-2 RNA (RT-PCR) (Not Detect.) 12/17/24 12/17/24 12/17/24 Range/Units 10:45 11:41 11:48 WBC (4.8-10.8) X10*3/uL RBC (4.60-5.80) X10*6/uL Hgb (14.0-18.0) g/dl Hct (42.0-52.0) % MCV (80.0-98.0) fL MCH (27.0-33.0) pg MCHC (31.0-36.0) g/dl RDW (11.0-16.0) % Plt Count (160-400) X10*3/uL MPV (9.4-12.4) fL Immature Gran % (Auto) (0.0-0.4) % Neut % (Auto) (45-73) % Lymph % (Auto) (20-40) % [place] % (Auto) (2-11) % Eos % (Auto) (0-4) % Baso % (Auto) (0-2) % Lymph # (Auto) (1.2-4.9) X10*3/uL [place] # (Auto) (0.1-1.2) X10*3/uL Eos # (Auto) (0.0-0.4) X10*3/uL Baso # (Auto) (0.0-0.2) X10*3/uL Abs Immat Gran (auto) (0.00-0.03) X10*3/uL Absolute Neuts (auto) (2.0-8.3) x10*3/uL Absolute Nucleated RBC (0.0-0.012) X10*3/uL Nucleated RBC % (auto) (0.0-0.2) /100WBC Smear Tech's Comments PT (11.2-13.5) SEC INR (0.9-1.1) APTT (26.7-34.1) SEC aPTT Heparin Protocol O2 Saturation 96.0 % ABG pH at Pt Temp 7.43 (7.35-7.45) ABG pCO2 at Pt Temp 25 L (32-45) mmHg ABG pO2 at Pt Temp 82 L (83-108) mmHg ABG HCO3 17 L (22-26) mmol/L ABG Base Excess (Actual) -5.6 mmol/L VBG pH 7.36 (7.32-7.43) VBG pCO2 23 mmHg VBG pO2 61 mmHg VBG HCO3 13 L (22-26) mmol/L VBG O2 Saturation 78.0 % VBG Base Excess -9.6 mmol/L Sodium (135-145) mmol/L Potassium (3.3-5.1) mmol/L Chloride (96-108) mmol/L Carbon Dioxide (22-29) mmol/L Anion Gap (12-20) BUN (9-16) mg/dL Creatinine (0.5-1.4) mg/dL Estim Creat Clear Calc Estimated GFR Random Glucose (60-115) mg/dL Lactic Acid (0.5-2.0) mmol/L Lactic Acid F/U @ 2Hr (0.5-2.0) mmol/L Calcium (8.4-10.2) mg/dL Magnesium (1.6-2.6) mg/dL Total Bilirubin (0.0-1.0) mg/dL AST (5-37) U/L ALT (0-40) U/L Alkaline Phosphatase (39-117) U/L Troponin I High Sens (<3.5-35.0) ng/L NT-Pro-B Natriuret Pep (<300) pg/mL Total Protein (6.5-8.0) g/dL Albumin (3.5-5.0) g/dL Lipase (8-78) U/L Beta-Hydroxybutyrate (0.02-0.27) mmol/L Urine Color Urine Appearance Urine pH (5.0-9.0) Ur Specific [place] (1.005-1.025) Urine Protein (Neg-Trace) mg/dL Urine Glucose (UA) (Negative) mg/dL Urine Ketones (Negative) mg/dL Urine Blood (Negative) Urine Nitrite (Negative) Ur Leukocyte Esterase (Negative) Urine RBC (0-2) /HPF Urine WBC (0-5) /HPF Urine WBC Clumps Ur Squamous Epith Cells (0-2) /HPF Urine Bacteria (None Seen) Hyaline Casts (0-2) /LPF Urine Opiates Screen (Not Detect) Ur Buprenorphine Scrn (Not Detect) ng/mL Ur Oxycodone Screen (Not Detect) ng/mL Urine Methadone Screen (Not Detect) ng/mL Urine Fentanyl Screen (Not Detect) Ur Barbiturates Screen (Not Detect) Ur Phencyclidine Scrn (Not Detect) Ur Amphetamines Screen (Not Detect) U Benzodiazepines Scrn (Not Detect) Urine Cocaine Screen (Not Detect) U Marijuana (THC) Screen (Not Detect) Respiratory Panel [place] See Note Adenovirus (Rapid PCR) Not Detected (Not Detect.) B.pert (TEM-PCR) Not Detected (Not Detect.) B.parapertussis DNA PCR Not Detected (Not Detect.) C. pneumoniae DNA (PCR) Not Detected (Not Detect.) Coronavirus OC43 (PCR) Not Detected (Not Detect.) Coronavirus HKU1 (PCR) Not Detected (Not Detect.) Coronavirus 229E (PCR) Not Detected (Not Detect.) COVID-19 (GUERA) (Negative) COVID-19 Clin Com Coronavirus NL63 (PCR) Not Detected (Not Detect.) Human Metapneumovir PCR Not Detected (Not Detect.) Influenza Type A (CECILIO) (Negative) Influenza A (RT-PCR) Not Detected (Not Detect.) Influenza A (H1) PCR Not Detected (Not Detect.) Influ A (H1/09) PCR Not Detected (Not Detect.) Influenza A (H3) PCR Not Detected (Not Detect.) Influenza Type B (CECILIO) (Negative) Influenza B (RT-PCR) Not Detected (Not Detect.) Influenza A & B Note M. pneumoniae (PCR) Not Detected (Not Detect.) Parainfluenza 1 (PCR) Not Detected (Not Detect.) Parainfluenza 2 (PCR) Not Detected (Not Detect.) Parainfluenza 3 (PCR) Not Detected (Not Detect.) Parainfluenza 4 (PCR) Not Detected (Not Detect.) RSV (PCR) Not Detected (Not Detect.) Entero/Rhino (PCR) Not Detected (Not Detect.) SARS-CoV-2 RNA (RT-PCR) Not Detected (Not Detect.) 12/17/24 12/17/24 12/17/24 Range/Units 13:28 13:29 13:30 WBC (4.8-10.8) X10*3/uL RBC (4.60-5.80) X10*6/uL Hgb (14.0-18.0) g/dl Hct (42.0-52.0) % MCV (80.0-98.0) fL MCH (27.0-33.0) pg MCHC (31.0-36.0) g/dl RDW (11.0-16.0) % Plt Count (160-400) X10*3/uL MPV (9.4-12.4) fL Immature Gran % (Auto) (0.0-0.4) % Neut % (Auto) (45-73) % Lymph % (Auto) (20-40) % [place] % (Auto) (2-11) % Eos % (Auto) (0-4) % Baso % (Auto) (0-2) % Lymph # (Auto) (1.2-4.9) X10*3/uL [place] # (Auto) (0.1-1.2) X10*3/uL Eos # (Auto) (0.0-0.4) X10*3/uL Baso # (Auto) (0.0-0.2) X10*3/uL Abs Immat Gran (auto) (0.00-0.03) X10*3/uL Absolute Neuts (auto) (2.0-8.3) x10*3/uL Absolute Nucleated RBC (0.0-0.012) X10*3/uL Nucleated RBC % (auto) (0.0-0.2) /100WBC Smear Tech's Comments PT (11.2-13.5) SEC INR (0.9-1.1) APTT (26.7-34.1) SEC aPTT Heparin Protocol O2 Saturation % ABG pH at Pt Temp (7.35-7.45) ABG pCO2 at Pt Temp (32-45) mmHg ABG pO2 at Pt Temp (83-108) mmHg ABG HCO3 (22-26) mmol/L ABG Base Excess (Actual) mmol/L VBG pH (7.32-7.43) VBG pCO2 mmHg VBG pO2 mmHg VBG HCO3 (22-26) mmol/L VBG O2 Saturation % VBG Base Excess mmol/L Sodium (135-145) mmol/L Potassium (3.3-5.1) mmol/L Chloride (96-108) mmol/L Carbon Dioxide (22-29) mmol/L Anion Gap (12-20) BUN (9-16) mg/dL Creatinine (0.5-1.4) mg/dL Estim Creat Clear Calc Estimated GFR Random Glucose (60-115) mg/dL Lactic Acid (0.5-2.0) mmol/L Lactic Acid F/U @ 2Hr 1.4 (0.5-2.0) mmol/L Calcium (8.4-10.2) mg/dL Magnesium (1.6-2.6) mg/dL Total Bilirubin (0.0-1.0) mg/dL AST (5-37) U/L ALT (0-40) U/L Alkaline Phosphatase (39-117) U/L Troponin I High Sens (<3.5-35.0) ng/L NT-Pro-B Natriuret Pep (<300) pg/mL Total Protein (6.5-8.0) g/dL Albumin (3.5-5.0) g/dL Lipase (8-78) U/L Beta-Hydroxybutyrate (0.02-0.27) mmol/L Urine Color Yellow Urine Appearance Cloudy Urine pH 6.0 (5.0-9.0) Ur Specific [place] 1.025 (1.005-1.025) Urine Protein 30 (1+) H (Neg-Trace) mg/dL Urine Glucose (UA) >=1000 H (Negative) mg/dL Urine Ketones 15 (Negative) mg/dL Urine Blood Moderate (2+) H (Negative) Urine Nitrite Positive H (Negative) Ur Leukocyte Esterase Moderate (2+) H (Negative) Urine RBC 0-2 (0-2) /HPF Urine WBC 21-50 (0-5) /HPF Urine WBC Clumps Present Ur Squamous Epith Cells 0-2 (0-2) /HPF Urine Bacteria 2+ (None Seen) Hyaline Casts 0-2 (0-2) /LPF Urine Opiates Screen Not Detected (Not Detect) Ur Buprenorphine Scrn Not Detected (Not Detect) ng/mL Ur Oxycodone Screen Not Detected (Not Detect) ng/mL Urine Methadone Screen Not Detected (Not Detect) ng/mL Urine Fentanyl Screen Not Detected (Not Detect) Ur Barbiturates Screen Not Detected (Not Detect) Ur Phencyclidine Scrn Not Detected (Not Detect) Ur Amphetamines Screen Not Detected (Not Detect) U Benzodiazepines Scrn Not Detected (Not Detect) Urine Cocaine Screen Not Detected (Not Detect) U Marijuana (THC) Screen Not Detected (Not Detect) Respiratory Panel [place] Adenovirus (Rapid PCR) (Not Detect.) B.pert (TEM-PCR) (Not Detect.) B.parapertussis DNA PCR (Not Detect.) C. pneumoniae DNA (PCR) (Not Detect.) Coronavirus OC43 (PCR) (Not Detect.) Coronavirus HKU1 (PCR) (Not Detect.) Coronavirus 229E (PCR) (Not Detect.) COVID-19 (GUERA) (Negative) COVID-19 Clin Com Coronavirus NL63 (PCR) (Not Detect.) Human Metapneumovir PCR (Not Detect.) Influenza Type A (CECILIO) (Negative) Influenza A (RT-PCR) (Not Detect.) Influenza A (H1) PCR (Not Detect.) Influ A (H1/09) PCR (Not Detect.) Influenza A (H3) PCR (Not Detect.) Influenza Type B (CECILIO) (Negative) Influenza B (RT-PCR) (Not Detect.) Influenza A & B Note M. pneumoniae (PCR) (Not Detect.) Parainfluenza 1 (PCR) (Not Detect.) Parainfluenza 2 (PCR) (Not Detect.) Parainfluenza 3 (PCR) (Not Detect.) Parainfluenza 4 (PCR) (Not Detect.) RSV (PCR) (Not Detect.) Entero/Rhino (PCR) (Not Detect.) SARS-CoV-2 RNA (RT-PCR) (Not Detect.) Independent Interpretation I performed an independent interpretation of an: EKG (Sinus tachycardia Nonspecific ST abnormality Abnormal ECG When compared with ECG of 17-Dec-2024 10:21, No significant change was found), Plain X-Ray (Impression: Mild interstitial prominence with scattered peribronchial thickening. No focal consolidation.) and CT Scan Radiology Impression Discussion of test interpretation with radiology: I have reviewed the radiologist's reading. Radiologist Impression: 1 view chest Comparison: CR/SR - XR CHEST 2 VIEWS - 12/08/24 10:54 EDT Findings: Cardiac and mediastinal contours are normal. Mild interstitial prominence with scattered peribronchial thickening. No focal consolidation. No effusion. No pneumothorax. No acute osseous finding. Impression: Mild interstitial prominence with scattered peribronchial thickening. No focal consolidation. This document has been electronically signed by: Josse Holt MD on 12/17/2024 11:10:15 CT head without contrast Comparison: None Findings: No intracranial mass, midline shift, hydrocephalus, or acute hemorrhage. No CT evidence of acute ischemia. Visualized paranasal sinuses and mastoid air cells normal. Orbits unremarkable. No skull fracture Impression: 1. No acute intracranial abnormalities. This document has been electronically signed by: Scott Richard MD on 12/17/2024 14:13:34 Exam: Contrast-enhanced CT abdomen and pelvis with multiplanar reformats. Comparison: None. Findings: CT abdomen: Lungs reveal left base nodules measuring up to 8 mm (measured on 28; 14). There is right worse than left lower lobe dependent atelectasis. Liver reveals a multiloculated somewhat heterogeneous right lobe collection measuring up to 7.3 x 5.6 cm AP and transverse dimension (28; 91, predominantly fluid attenuation at 10 Hounsfield units, with a small focus of gas density anteriorly) by 5.8 cm craniocaudad dimension (30; 38), most likely hepatic abscess. No other focal lesions or ductal dilatation. Gallbladder appears unremarkable. Spleen appears unremarkable. Pancreas and adrenal glands appear unremarkable. Kidneys reveal a very slightly heterogeneous nephrogram on the right, raising the possibility of mild pyelonephritis. Kidneys otherwise unremarkable. No free intraperitoneal fluid or retroperitoneal masses or adenopathy. Abdominal aorta is normal caliber with mild calcific athero sclerosis. Bowel loops reveal no abnormal wall thickening or distention. The appendix appears unremarkable. No CT evidence of diverticulitis. CT pelvis: Prostatomegaly is present, with prostate gland measuring 5.6 cm transverse dimension. Urinary bladder is free of gross filling defects. No pelvic masses, fluid or adenopathy. Osseous structures reveal no destructive osseous lesions. Impression: 1. Multiloculated fluid attenuation hepatic lesion containing small focus of gas, most likely hepatic abscess, measuring up to 7.3 cm maximal dimension. 2. Slightly heterogeneous right nephrogram raises the possibility of mild pyelonephritis, consider correlation with urinalysis. Pulmonary nodules measuring up to 8 mm. 3. Pulmonary nodules measuring up to 8 mm. Prostatomegaly as described above. This document has been electronically signed by: Scott Richard MD on 12/17/2024 14:18:35 CT angiography of the chest with IV contrast. 3D/MIP post processing reconstructions were performed. COMPARISON: CT angiogram chest dated 12/08/24 at 13:24 EDT FINDINGS: There are no intraluminal filling defects to suggest pulmonary embolism. No evidence of right heart strain. No supraclavicular or axillary lymphadenopathy. Ascending aorta and main pulmonary artery are normal in caliber. Coronary artery calcifications present within the LAD and circumflex. No pericardial effusion. Normal esophagus. No mediastinal lymphadenopathy. No pleural effusion. Smooth interlobular septal thickening along the posterior lower lobes bilaterally. Subpleural consolidation within the right upper lobe laterally, new from prior imaging Trachea and central airways are clear. No significant bronchial wall thickening. No bronchiectasis. Interval development of multiple bilateral pulmonary nodules. For example left upper lobe pulmonary nodule measuring 1.3 x 1.3 cm (series 21, image 51), new from prior imaging. Left upper lobe 6 mm pulmonary nodule (series 21, image 70), new from prior imaging. Left lower lobe 7 mm pulmonary nodule (series 21, image 98), new from prior imaging. Right upper lobe medial 1.0 x 0.9 cm pulmonary nodule (series 21, image 61), new from prior imaging. Partially calcified right upper lobe pulmonary nodule measuring 1.0 cm (series 21, image 43), stable. Ill-defined hepatic lesion with small amount of internal gas measuring 6.9 x 4.8 x 0.1 cm (series 21, image 92), previously measured 2.9 x 2.2 cm. Sclerotic lesion within the T7 vertebral body consistent with a bone island. IMPRESSION: 1. No evidence of pulmonary embolism. 2. Interval development of subpleural consolidation along the lateral right upper lung and multiple bilateral pulmonary nodules measuring up to 1.3 cm in the left upper lobe. Findings most likely represent a multifocal infectious or inflammatory process with metastatic disease considered less likely given, with the exception of one partially calcified nodule, the nodules are new since imaging dated 12/08/2024. No evidence of cavitation. 3. Interval increase in size of ill-defined lesion within the right lobe of the liver measuring up to 6.9 cm with now small amount of internal gas. Findings raise suspicion for hepatic abscess. 4. Interstitial pulmonary edema. 5. Coronary artery atherosclerosis. This document has been electronically signed by: Marko Granger MD on 12/17/2024 15:00:58 Independent Historian Clinical information obtained from an independent historian. History obtained from or confirmed by: EMS External Record Review External record reviewed: Inpatient record, Office record, Outpatient record, Prior outpatient labs, Prior outpatient radiology, Primary care record and Outside ED record Prescription Management I considered prescription management with: Other (see mdm ) Chronic Conditions Patient?s care impacted by: Other (see hpi ) Social Determinants Patient?s care significantly limited by Social Determinants of Health including: Other Social Determinant of Health Critical Care Time Critical Care Time Critical Care Time: Yes Total Critical Care Time: 90 Attestation: Critical Care: The patient was critically ill with a high probability of imminent or life threatening deterioration. I spent greater than 30 minutes of discontinuous time evaluating the patient,delivering critical care at the bedside, discussing and evaluating pertinent data with consultants. Critical care time does not include time spent performing separately billable procedures or teaching. Total time spent performing critical care was 90 minutes. Discharge Plan Discharge Clinical Impression: Sepsis, Hypoxia, Fever, Shortness of breath, Abscess of liver, Pyelonephritis of right kidney Patient Disposition: Xfer Acute Care Hospital Transfer Details: [facility] ED to ED transfer, accepting attending physician is Dr. Avila Prescriptions: No Action Eliquis DVT-PE Treat 30D Start 5 mg (74 tabs) tablets,dose pack 5 mg PO BID Qty: 74 0RF Print Language: Turkmen
[2024-12-17 10:45] LABS: Hematocrit 38.9 % (42.0-52.0); Hemoglobin 13.1 g/dl (14.0-18.0); Imm Gran Abs Auto 0.17 X10*3/uL (0.00-0.03); Imm Gran Pct Auto 1.6 % (0.0-0.4); Lymphocytes Absolute Auto 0.4 X10*3/uL (1.2-4.9); MANUAL DIFF FLAG SCAN; Mean Corpuscular HGB Conc 33.7 g/dl (31.0-36.0); Mean Corpuscular Hemoglobin 31.3 pg (27.0-33.0); Mean Corpuscular Volume 92.8 fL (80.0-98.0); NRBC Abs Auto 0.000 X10*3/uL (0.0-0.012); NRBC Pct Auto 0.0 /100WBC (0.0-0.2); Platelet Count 357 X10*3/uL (160-400); Red Blood Count 4.19 X10*6/uL (4.60-5.80); SCAN SMEAR FLAG 1; White Blood Count 10.7 X10*3/uL (4.8-10.8)
[2024-12-17 10:52] LABS: VBG HCO3 13 mmol/L (22-26); VBG O2 % Saturation 78.0 %
[2024-12-17 10:52] LABS: INTERNATIONAL NORM RATIO 1.2 (0.9-1.1); Prothrombin Time 14.5 SEC (11.2-13.5)
[2024-12-17 10:56] LABS: Hematocrit 38.7 % (42.0-52.0); Hemoglobin 13.1 g/dl (14.0-18.0); Mean Corpuscular HGB Conc 33.9 g/dl (31.0-36.0); Mean Corpuscular Hemoglobin 31.5 pg (27.0-33.0); Mean Corpuscular Volume 93.0 fL (80.0-98.0); NRBC Abs Auto 0.000 X10*3/uL (0.0-0.012); NRBC Pct Auto 0.0 /100WBC (0.0-0.2); Platelet Count 365 X10*3/uL (160-400); Red Blood Count 4.16 X10*6/uL (4.60-5.80); White Blood Count 10.7 X10*3/uL (4.8-10.8)
[2024-12-17 10:57] LABS: Venous Blood Gas Refer to POC result
--- NOTE | 2024-12-17 11:10 | ECG_ITS ---
Test Reason : REPEAT EKG Blood Pressure : */* mmHG Vent. Rate : 116 BPM Atrial Rate : 116 BPM P-R Int : 160 ms QRS Dur : 80 ms QT Int : 326 ms P-R-T Axes : 42 20 66 degrees QTcB Int : 453 ms Sinus tachycardia Nonspecific ST abnormality Abnormal ECG When compared with ECG of 17-Dec-2024 10:21, No significant change was found Referred By: Breanna Brambila Electronically Signed By: Fady Bernardo
[2024-12-17 11:11] LABS: NT Pro B Type Natriuretic Pept 2683.5 pg/mL (<300)
[2024-12-17 11:13] LABS: Troponin-I High Sensitivity < 2.7 ng/L (<3.5-35.0)
[2024-12-17 11:14] LABS: IDNOW Serial# 58CA691E; Influenza B2 Negative (Negative)
[2024-12-17 11:15] LABS: Alanine Aminotransferase 71 U/L (0-40); Albumin Level 3.6 g/dL (3.5-5.0); Alkaline Phosphatase 219 U/L (39-117); Anion Gap 26 (12-20); Aspartate Amino Transferase 94 U/L (5-37); Blood Urea Nitrogen 17 mg/dL (9-16); COVID-19 Test Negative (Negative); Calcium 9.2 mg/dL (8.4-10.2); Carbon Dioxide 13 mmol/L (22-29); Chloride 98 mmol/L (96-108); Creatinine Clr Calc Pharmacy 48.9; Estimated Glomerular Filt Rate 56; IDNOW Serial# 55D5AD1C; Lipase 71 U/L (8-78); Magnesium 2.5 mg/dL (1.6-2.6); Potassium 4.5 mmol/L (3.3-5.1); Sodium 132 mmol/L (135-145); Total Protein 7.9 g/dL (6.5-8.0)
[2024-12-17 11:30] LABS: Partial Thromboplastin Time 30.6 SEC (26.7-34.1)
[2024-12-17 11:52] LABS: ABG HCO3 17 mmol/L (22-26); ABG O2 % Saturation 96.0 %
--- NOTE | 2024-12-17 11:59 | PC.NURSE ---
Patient presents to ED c/o SOB with non productive cough and weakness. Patient reports feeling this way for several weeks but symptoms have worsened Patient 89% RA applied 2L NC 97% RR 24 116 BPM rectal temp 103.6 Rectal probe applied Patient placed on cooling blanket and ice packs applied, current temp 100.9 Sepsis protocol initiated Patient poor historian Patient prescribed eliquis and patient reports taking eliquis Patient pharmacy reports prescription hasnt been filled Blood collected/ sent IV 20G left hand, 20G RAC, 18G R hand CXR = Mild interstitial prominence with scattered peribronchial thickening EKG = sinus tach Provider to see patient Plan of care on going
[2024-12-17] MEDS: Heparin Sodium,Porcine/1/2NS 25,000 UNIT/250 ML IV.SOLN 8.54 UNIT IVCONT (12:14)
[2024-12-17 12:39] LABS: Chlamydia pneumoniae PCR Not Detected (Not Detect.); Coronavirus 229E PCR Not Detected (Not Detect.); Coronavirus HKU1 PCR Not Detected (Not Detect.); Coronavirus NL63 PCR Not Detected (Not Detect.); Coronavirus OC43 PCR Not Detected (Not Detect.); RSV PCR Not Detected (Not Detect.); Rhino/Enterovirus PCR Not Detected (Not Detect.)
[2024-12-17 12:40] LABS: Influenza A H1 PCR Not Detected (Not Detect.); Influenza A H1-2009 PCR Not Detected (Not Detect.); Influenza A H3 PCR Not Detected (Not Detect.); SARS-CoV-2 PCR Not Detected (Not Detect.)
[2024-12-17 12:40] LABS: Reflex Lactate? Lactic Acid Added
[2024-12-17] MEDS: iohexoL 350 MG/ML 100 ML INFUS..BTL IV (12:57)
[2024-12-17 13:39] LABS: Appearance Urine Cloudy; Glucose Urine UA >=1000 mg/dL (Negative); PH 6.0 (5.0-9.0); Specific Gravity - Urine 1.025 (1.005-1.025); UMIC TRIGGER UACC YES
--- NOTE | 2024-12-17 13:43 | P.CONCA_ITS ---
History of Present Illness History of Present Illness Date of Service: 12/17/24 Requesting physician: Breanna Brambila Chief complaint: SOB WEAKNESS Narrative: Pleasant 64-year-old gentleman presenting for fever and body aches. He has been noticed to be significantly tachycardic and had a fever of 103.8 in the emergency department. He just got diagnosed with questionable small subsegmental PE on a CT scan on December 08. He was just discharged home on apixaban but apparently this is unclear whether he had fill the scripts because when pharmacy was reach out this said that it was 900 dollars and he did not feel it. The patient is saying that he has been taking it. He also has diabetes and he is saying that he use insulin. There is some history of crack cocaine use but he is saying that he is not using any drugs currently. He is saying he is feeling better after nebulizers and IV fluids. Denying any chest discomfort shortness of breath. No other complaints currently. His blood workup is quite abnormal showing anion gap metabolic acidosis with anion gap of 26. His lactate is quite high and he also has ketoacidosis with hyperglycemia. Urinalysis is concerning for UTI. [facility] Social History Social History Alcohol intake: current Alcohol type: beer Smoked in Last 30 Days: No Use of substances other than those prescribed or required for medical reasons: Yes Substance Use Type: Crack/Cocaine Advance Directives: No Advance Directives Information Provided: No Do you have a plan to hurt others: No Plan Meds Allergies Allergy/AdvReac Type Severity Reaction Status Date / Time No Known Allergies Allergy Verified 12/17/24 10:09 Active Medications: Current Medications Heparin Sodium (Porcine) (Heparin Sodium,Porcine 5,000 Unit/Ml Vial) 2,400 unit 40 unit/kg (2400 unit) IVPUSH PROTOCOL BOLUS PRN; Protocol PRN Reason: 40 unit/kg - Heparin Protocol Heparin Sodium (Porcine) (Heparin Sodium,Porcine 5,000 Unit/Ml Vial) 4,900 unit 80 unit/kg (4900 unit) IVPUSH PROTOCOL BOLUS PRN; Protocol PRN Reason: 80 unit/kg - Heparin Protocol Heparin Sodium/Sodium Chloride (Heparin Sodium,Porcine/1/2ns) 25,000 unit in 250 mls @ 0 mls/hr IVCONT .Q0M [facility]; Protocol Last Admin: 12/17/24 12:14 Dose: 14 units/kg/hr, 8.54 mls/hr Physical Exam 2 Vital Signs: Vital Signs: Last Vital Signs Temp 99.5 F 12/17/24 12:28 Pulse 101 H 12/17/24 12:28 Resp 19 12/17/24 12:28 BP 119/66 12/17/24 12:28 Pulse Ox 100 12/17/24 12:28 O2 Del Method Nasal Cannula 12/17/24 12:28 O2 Flow Rate 2 12/17/24 12:28 BMI result Body Mass Index 22.4 GENERAL APPEARANCE: Diaphoretic. NECK: no carotid bruit, no jugular venous distention. HEART: no murmurs, regular rate and rhythm. Tachycardic. LUNGS: clear to auscultation bilaterally. ABDOMEN: soft, nontender. EXTREMITIES: no edema. PERIPHERAL PULSES: equal. NEUROLOGIC: No gross deficits, AAO X 3 Objective Labs and Meds 12/17/24 10:33 12/17/24 10:30 Lab results: Laboratory Results - last 24 hr 12/17/24 12/17/24 12/17/24 10:29 10:30 10:33 WBC 10.7 10.7 RBC 4.19 L 4.16 L Hgb 13.1 L 13.1 L Hct 38.9 L 38.7 L MCV 92.8 93.0 MCH 31.3 31.5 MCHC 33.7 33.9 RDW 12.3 12.3 Plt Count 357 D 365 MPV 11.0 11.3 Immature Gran % (Auto) 1.6 H Neut % (Auto) 90.2 H Lymph % (Auto) 3.9 L [place] % (Auto) 3.5 Eos % (Auto) 0.1 Baso % (Auto) 0.7 Lymph # (Auto) 0.4 L [place] # (Auto) 0.4 Eos # (Auto) 0.0 Baso # (Auto) 0.1 Abs Immat Gran (auto) 0.17 H Absolute Neuts (auto) 9.6 H Absolute Nucleated RBC 0.000 0.000 Nucleated RBC % (auto) 0.0 0.0 Smear Tech's Comments VERIFIED PT 14.5 H Cancelled INR 1.2 H Cancelled APTT 30.6 D aPTT Heparin Protocol Cancelled O2 Saturation ABG pH at Pt Temp ABG pCO2 at Pt Temp ABG pO2 at Pt Temp ABG HCO3 ABG Base Excess (Actual) VBG pH VBG pCO2 VBG pO2 VBG HCO3 VBG O2 Saturation VBG Base Excess Sodium 132 L Potassium 4.5 Chloride 98 Carbon Dioxide 13 L Anion Gap 26 H BUN 17 H Creatinine 1.28 Estim Creat Clear Calc 48.9 Estimated GFR 56 Random Glucose 365 H* Lactic Acid 8.5 H* Calcium 9.2 Magnesium 2.5 Total Bilirubin 0.8 AST 94 H ALT 71 H Alkaline Phosphatase 219 H Troponin I High Sens < 2.7 NT-Pro-B Natriuret Pep 2683.5 H Total Protein 7.9 Albumin 3.6 Lipase 71 Beta-Hydroxybutyrate 1.76 H Urine Color Urine Appearance Urine pH Ur Specific [place] Urine Protein Urine Glucose (UA) Urine Ketones Urine Blood Urine Nitrite Ur Leukocyte Esterase Respiratory Panel [place] Adenovirus (Rapid PCR) B.pert (TEM-PCR) B.parapertussis DNA PCR C. pneumoniae DNA (PCR) Coronavirus OC43 (PCR) Coronavirus HKU1 (PCR) Coronavirus 229E (PCR) COVID-19 (GUERA) Negative COVID-19 Clin Com See Note Coronavirus NL63 (PCR) Human Metapneumovir PCR Influenza Type A (CECILIO) Negative Influenza A (RT-PCR) Influenza A (H1) PCR Influ A (H1/09) PCR Influenza A (H3) PCR Influenza Type B (CECILIO) Negative Influenza B (RT-PCR) Influenza A & B Note See Note M. pneumoniae (PCR) Parainfluenza 1 (PCR) Parainfluenza 2 (PCR) Parainfluenza 3 (PCR) Parainfluenza 4 (PCR) RSV (PCR) Entero/Rhino (PCR) SARS-CoV-2 RNA (RT-PCR) 12/17/24 12/17/24 12/17/24 10:45 11:41 11:48 WBC RBC Hgb Hct MCV MCH MCHC RDW Plt Count MPV Immature Gran % (Auto) Neut % (Auto) Lymph % (Auto) [place] % (Auto) Eos % (Auto) Baso % (Auto) Lymph # (Auto) [place] # (Auto) Eos # (Auto) Baso # (Auto) Abs Immat Gran (auto) Absolute Neuts (auto) Absolute Nucleated RBC Nucleated RBC % (auto) Smear Tech's Comments PT INR APTT aPTT Heparin Protocol O2 Saturation 96.0 ABG pH at Pt Temp 7.43 ABG pCO2 at Pt Temp 25 L ABG pO2 at Pt Temp 82 L ABG HCO3 17 L ABG Base Excess (Actual) -5.6 VBG pH 7.36 VBG pCO2 23 VBG pO2 61 VBG HCO3 13 L VBG O2 Saturation 78.0 VBG Base Excess -9.6 Sodium Potassium Chloride Carbon Dioxide Anion Gap BUN Creatinine Estim Creat Clear Calc Estimated GFR Random Glucose Lactic Acid Calcium Magnesium Total Bilirubin AST ALT Alkaline Phosphatase Troponin I High Sens NT-Pro-B Natriuret Pep Total Protein Albumin Lipase Beta-Hydroxybutyrate Urine Color Urine Appearance Urine pH Ur Specific [place] Urine Protein Urine Glucose (UA) Urine Ketones Urine Blood Urine Nitrite Ur Leukocyte Esterase Respiratory Panel [place] See Note Adenovirus (Rapid PCR) Not Detected B.pert (TEM-PCR) Not Detected B.parapertussis DNA PCR Not Detected C. pneumoniae DNA (PCR) Not Detected Coronavirus OC43 (PCR) Not Detected Coronavirus HKU1 (PCR) Not Detected Coronavirus 229E (PCR) Not Detected COVID-19 (GUERA) COVID-19 Clin Com Coronavirus NL63 (PCR) Not Detected Human Metapneumovir PCR Not Detected Influenza Type A (CECILIO) Influenza A (RT-PCR) Not Detected Influenza A (H1) PCR Not Detected Influ A (H1/09) PCR Not Detected Influenza A (H3) PCR Not Detected Influenza Type B (CECILIO) Influenza B (RT-PCR) Not Detected Influenza A & B Note M. pneumoniae (PCR) Not Detected Parainfluenza 1 (PCR) Not Detected Parainfluenza 2 (PCR) Not Detected Parainfluenza 3 (PCR) Not Detected Parainfluenza 4 (PCR) Not Detected RSV (PCR) Not Detected Entero/Rhino (PCR) Not Detected SARS-CoV-2 RNA (RT-PCR) Not Detected 12/17/24 13:30 WBC RBC Hgb Hct MCV MCH MCHC RDW Plt Count MPV Immature Gran % (Auto) Neut % (Auto) Lymph % (Auto) [place] % (Auto) Eos % (Auto) Baso % (Auto) Lymph # (Auto) [place] # (Auto) Eos # (Auto) Baso # (Auto) Abs Immat Gran (auto) Absolute Neuts (auto) Absolute Nucleated RBC Nucleated RBC % (auto) Smear Tech's Comments PT INR APTT aPTT Heparin Protocol O2 Saturation ABG pH at Pt Temp ABG pCO2 at Pt Temp ABG pO2 at Pt Temp ABG HCO3 ABG Base Excess (Actual) VBG pH VBG pCO2 VBG pO2 VBG HCO3 VBG O2 Saturation VBG Base Excess Sodium Potassium Chloride Carbon Dioxide Anion Gap BUN Creatinine Estim Creat Clear Calc Estimated GFR Random Glucose Lactic Acid Calcium Magnesium Total Bilirubin AST ALT Alkaline Phosphatase Troponin I High Sens NT-Pro-B Natriuret Pep Total Protein Albumin Lipase Beta-Hydroxybutyrate Urine Color Yellow Urine Appearance Cloudy Urine pH 6.0 Ur Specific [place] 1.025 Urine Protein 30 (1+) H Urine Glucose (UA) >=1000 H Urine Ketones 15 Urine Blood Moderate (2+) H Urine Nitrite Positive H Ur Leukocyte Esterase Moderate (2+) H Respiratory Panel [place] Adenovirus (Rapid PCR) B.pert (TEM-PCR) B.parapertussis DNA PCR C. pneumoniae DNA (PCR) Coronavirus OC43 (PCR) Coronavirus HKU1 (PCR) Coronavirus 229E (PCR) COVID-19 (GUERA) COVID-19 Clin Com Coronavirus NL63 (PCR) Human Metapneumovir PCR Influenza Type A (CECILIO) Influenza A (RT-PCR) Influenza A (H1) PCR Influ A (H1/09) PCR Influenza A (H3) PCR Influenza Type B (CECILIO) Influenza B (RT-PCR) Influenza A & B Note M. pneumoniae (PCR) Parainfluenza 1 (PCR) Parainfluenza 2 (PCR) Parainfluenza 3 (PCR) Parainfluenza 4 (PCR) RSV (PCR) Entero/Rhino (PCR) SARS-CoV-2 RNA (RT-PCR) Assessment and Plan (1) Sepsis: Status: Acute (2) Pulmonary emboli: Status: Inactive Plan 64 year gentleman with recent diagnosis of PE (subsegmental by CT scan) who is presenting with fevers and body aches. Clinically quite sick and appears to be septic. Etiology can be UTI versus some viral infection. He has viral panels sent. IV fluid resuscitation. Broad-spectrum antibiotics and insulin. Start heparin for the recent diagnosis of PE. Scan his legs to make sure there is no DVT present. His EKGs showed some ST elevations in lead V3 but he was tachycardic at that time. His repeat EKG as he has slowed down is improved. I think these changes are related to tachycardia in leads with Q-waves. Thank you for allowing me to participate in the care of your patient. Please feel free to contact me if you have any questions. Procedures Date of Service Date of Service: 12/17/24
[2024-12-17 13:49] LABS: ~Lactic Acid-LAB USE ONLY 1.4 mmol/L (0.5-2.0)
[2024-12-17 13:49] LABS: Cannabinoid Screen Urine Not Detected (Not Detect)
[2024-12-17 13:51] LABS: UACC Culture Trigger YES
[2024-12-17 14:42] LABS: ABG Refer to POC result
--- NOTE | 2024-12-17 15:18 | PC.NURSE ---
ABD CT = hepatic abscess No PE noted on scans Provider stopped heparin drip at this time no bleeding noted
--- NOTE | 2024-12-17 17:46 | PC.NURSE ---
Nurse to nurse report called to [facility] Report given to Lonny CARPENTER
--- NOTE | 2024-12-17 21:19 | PC.NURSE ---
critical result received and patient transferred to [facility], Called and spoke with Kirstie CARPENTER and gave her critical result of blood culturesX2-Gram - rods.
[2024-12-18 03:50] LABS: Syphilis Screen Nonreactive (Nonreactive)
[2024-12-19 22:38] LABS: Lyme Abs Screen <0.90 index
== END 2024-12-17 20:08 | disposition short-term general hospital (02) ==
PROVIDERS: Physician Assistant; Emergency Provider Emergency Medicine Emergency Medical Services
DX: A41.9 Sepsis, unspecified organism (principal); I26.99 Other pulmonary embolism without acute cor pulmonale; R06.00 Dyspnea, unspecified; R09.02 Hypoxemia; R06.02 Shortness of breath; K75.0 Abscess of liver; N20.0 Calculus of kidney; Z79.899 Other long term (current) drug therapy
CPT/HCPCS: 36415; 70450; 71045; 71275; 74177; 80053; 80307; 81001; 82010; 82803; 83605; 83690; 83735; 83880; 84484; 85025; 85027; 85610; 85730; 86617; 86618; 86780; 87040; 87077; 87086; 87088; 87186; 87205; 87502; 87633; 87635; 93005; 94640; 96361; 96365; 96366; 96367; 96368; 96375; 99285; 99291; 99292; J0131; J0736; J1644; J2543; J3374; Q9967

== ENCOUNTER → 2024-12-17 10:16 | Outpatient (BNV) | payer MEDICARE, SELFPAY | PROVIDERS: Emergency Provider Emergency Medicine Emergency Medical Services; Visit Provider Radiology Vascular & Interventional Radiology | DX: R10.84 Generalized abdominal pain (principal); R50.9 Fever, unspecified; R41.82 Altered mental status, unspecified; R06.02 Shortness of breath; Z86.711 Personal history of pulmonary embolism | CPT/HCPCS: 71045 ==

== ENCOUNTER → 2024-12-17 10:53 | Outpatient (BNV) | payer MEDICARE, SELFPAY | PROVIDERS: Emergency Provider Emergency Medicine Emergency Medical Services; Visit Provider Internal Medicine Cardiovascular Disease | DX: R00.0 Tachycardia, unspecified (principal) | CPT/HCPCS: 93010 ==